=== PATIENT | male | born 1980 | race Caucasian/White ===

== ENCOUNTER 2016-10-22 10:09 | Emergency (ER) ==
[2016-10-22 10:18] VITALS: BP 144/83
[2016-10-22] MEDS ORDERED: ZOFRAN IM ONE (10:23)
[2016-10-22] MEDS ORDERED: MORPHINE IM ONE (10:23)
--- NOTE | 2016-10-22 10:29 | PROVIDER DOCUMENTATION ---
HPI-Musculoskeletal Pain/Inj - GENERAL Chief Complaint: Hip Pain Stated Complaint: REQ RX REFILL Time Seen by Provider: 10/22/16 10:19 Source: patient - HX OF PRESENT ILLNESS-MUSKULOSKELTAL Nature of Presenting Problem: This pt, who has a hx of chronic hip pain, presents today c complaints of continued pain and request for medication. He reports that his PCP wrote him for 20 Norcos last week but he has run out. He called the clinic today and he was set up for an appointment c a pain clinic in November and told to "come tot he ED for a script." Pt is ambulating well. No loss of motor function or sensation. No other issues or complaints. Quality of Pain: reports: aching Severity in ED: moderate Onset/Duration: other (chronic) Timing: still present Modifying Factors: improves with: movement Any recent injury?: No Similar Symptoms Previously?: Yes Recently seen or treated by another doctor?: Yes Review of Systems - Adult - REVIEW OF SYSTEMS - ADULT Constitutional: reports: no symptoms reported. denies: chills, fever Eyes: reports: no symptoms reported. denies: discharge, dry eyes Ears, Nose, Mouth & Throat: reports: no symptoms reported. denies: ear discharge, ear pain Cardiovascular: reports: no symptoms reported. denies: chest pain, edema Respiratory: reports: no symptoms reported. denies: chronic cough, cough Gastrointestinal: reports: no symptoms reported. denies: abdominal pain, hematemesis Genitourinary: reports: no symptoms reported. denies: dysuria, discharge Musculoskeletal: reports: see HPI, joint pain. denies: frequent leg cramps, muscle aches Integumentary: reports: no symptoms reported. denies: hives, hair loss Neurological: reports: no symptoms reported. denies: ataxia, dizziness/vertigo Psychiatric: reports: no symptoms reported. denies: anxiety, anti-depressant use Endocrine: reports: no symptoms reported. denies: change in skin pigment, excessive sweating Hematologic/Lymphatic: reports: no symptoms reported Allergic/Immunologic: reports: no symptoms reported All Other Systems: Reviewed and Negative Past History - Adult - PAST MEDICAL HISTORY-ADULT Review of Records: reports: Old Records Reviewed, Nursing Assessment Review, Medications Reviewed, Social history reviewed & non-contributory. Major Childhood Illnesses: reports: denies history Cardiovascular: reports: denies history Respiratory: reports: denies history Gastrointestinal: reports: denies history Obstetrical/Gynecological: reports: denies history Genitourinary: reports: denies history Musculoskeletal: reports: chronic pain (hip) Neurological: reports: Seizures/Epilepsy Endocrine/Immune: reports: denies history Other Conditions: reports: denies history Physical Exam-Injury Related - Physical Exam-Injury Related Initial Vital Signs Reviewed: Yes General Appearance: appears well, alert, no apparent distress Eyes: PERRL/EOMI, pink conjunctivae Head, Ears, Nose, Mouth & Throat: normocephalic/atraumatic, moist mucous membranes Neck: non-tender, full range of motion, supple Respiratory: chest non-tender, lungs clear, normal breath sounds Cardiovascular: normal peripheral pulses, regular rate, rhythm Abdominal Exam: normal bowel sounds, non tender, soft Back Exam: normal inspection Extremity: normal range of motion, normal gait, normal inspection, tenderness ( hips) Integumentary: normal color, warm/dry Neurologic: grossly normal, no motor/sensory deficits. negative: facial droop, focal weakness, motor weakness, sensory deficit Progress - PLAN OF CARE/RESULTS Progress/Plan/Lab Results: Orders Category Date Time Status Morphine Med 10/22/16 10:23 Discontinued 4 mg IM NOW ONE Ondansetron [Zofran] Med 10/22/16 10:23 Discontinued 4 mg IM NOW ONE Vital Signs Temp Pulse Resp BP Pulse Ox 10/22/16 10:14 97.6 F 66 16 144/83 100 povidone-iodine [From Betadine] Adverse Reaction (Verified 05/15/16 13:06) RASH soap [From Betadine] Adverse Reaction (Verified 05/15/16 13:06) RASH Sulfa (Sulfonamide Antibiotics) Adverse Reaction (Verified 05/15/16 13:06) RASH Clindamycin [Cleocin] 300 mg PO Q6HR #28 capsule 05/15/16 Tramadol [Ultram] 50 mg PO Q8HR #10 tablet 05/15/16 Discussed c pt that I would give him some medication here but I would not refill his narcotic prescriptions. I did agree to write him for some NSAIDs and muscle relaxers. He and his family voiced understanding and are in agreement c this plan. Departure - Departure Time of Disposition Order: 10:27 DIAGNOSIS: Request for narcotic pain medication Chronic hip pain Qualifiers: Laterality: unspecified laterality Qualified Code(s): M25.559 - Pain in unspecified hip; G89.29 - Other chronic pain Disposition: HOME 01 Certified Medical Emergency: Urgent Condition: Good Additional Instructions: Take medication as prescribed. Follow up with pain management as scheduled. ED Follow Up Instructions: You have been treated by a care provider in the Emergency Department. These instructions are being provided to you so you can have an understanding of how to care for yourself upon discharge. Upon discharge from the Emergency Department, you are responsible for making arrangements for follow-up care by a physician of your choice. Take all prescribed medications as directed. Return to the Emergency Department immediately for any new or worsening symptoms. You may call the Physician Referral phone number at [phone] to obtain a list of Physicians who are taking new patients. Prescriptions: Cyclobenzaprine [Flexeril] 10 mg PO TID #20 tablet Diclofenac Na D.r. [Voltaren] 50 mg PO BID #30 tab Attestation - Physician/ CHRISTIANO Attestation Patient care was provided by Advanced Practice Provider:: Yes Advanced Practice Provider:: Carlos Riley Advanced Practice Provider documentation review:: The Mid-level provider documentation, treatment plan and medical decision making was reviewed by the physician who agrees with all treatment and medical decision making by the P.
== END 2016-10-22 11:00 | disposition home or self-care (01) ==
LOC: ED 10:09
DX: G89.29 Other chronic pain (principal); M25.552 Pain in left hip; R56.9 Unspecified convulsions; Z79.899 Other long term (current) drug therapy
CPT/HCPCS: J2270; J2405